=== PATIENT | male | born 1995 | race African-American/Black ===

== ENCOUNTER 2018-09-30 08:47 | Emergency (ER) | payer OTHER ==
[~2018-09-30] VITALS: Ht 177.8 cm; Wt 75.0 kg
[2018-09-30] MEDS ORDERED: KETOROLAC 60 MG/2 ML VIAL (J1885) IM ONE (09:45)
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
[2018-09-30] MEDS ORDERED: NAPR-885 PO (10:06)
[2018-09-30] MEDS ORDERED: ROBA500T PO (10:06)
[2018-09-30 10:12] VITALS: BP 137/76
== END 2018-09-30 10:13 | disposition home or self-care (01) ==
LOC: M ED 08:47
DX: M54.9 Dorsalgia, unspecified (principal); V48.0XXA Car driver injured in noncollision transport accident in nontraffic accident, initial encounter; Y92.89 Other specified places as the place of occurrence of the external cause; Y93.89 Activity, other specified; Y99.9 Unspecified external cause status
CPT/HCPCS: 72072; 72110; 96372; 99283; J1885

== ENCOUNTER 2018-12-25 19:46 | Emergency (ER) | payer OTHER ==
[~2018-12-25] VITALS: Ht 177.8 cm; Wt 84.1 kg
[~2018-12-25 19:46] MED LIST: NAPR-885 PO; ROBA500T PO
[2018-12-25 21:51] LABS: CHLAMYDIA DNA AMPLIFICATION POSITIVE (NEGATIVE); GC DNA AMPLIFICATION NEGATIVE (NEGATIVE)
[2018-12-25] MEDS ORDERED: AZITHROMYCIN 250 MG TAB PO ONE (22:30)
[2018-12-25 22:35] VITALS: BP 131/70
== END 2018-12-25 22:38 | disposition home or self-care (01) ==
LOC: M ED 19:46
DX: A74.9 Chlamydial infection, unspecified (principal)

== ENCOUNTER 2019-01-01 23:26 | Emergency (ER) | payer OTHER ==
[~2019-01-01] VITALS: Ht 177.8 cm; Wt 81.8 kg
[2019-01-01 23:26] VITALS: BP 131/68
[2019-01-02 03:26] LABS: CHLAMYDIA DNA AMPLIFICATION NEGATIVE (NEGATIVE); GC DNA AMPLIFICATION NEGATIVE (NEGATIVE)
== END 2019-01-02 04:51 | disposition home or self-care (01) ==
LOC: M ED 23:26
DX: Z11.3 Encounter for screening for infections with a predominantly sexual mode of transmission (principal)

== ENCOUNTER 2019-03-24 13:46 | Emergency (ER) | payer OTHER ==
[~2019-03-24] VITALS: Ht 177.8 cm; Wt 87.4 kg
[2019-03-24 13:47] VITALS: BP 117/59
== END 2019-03-24 15:20 | disposition left against medical advice (07) ==
LOC: M ED 13:46
DX: Z53.29 Procedure and treatment not carried out because of patient's decision for other reasons (principal)

== ENCOUNTER 2019-12-31 21:57 | Emergency (ER) | payer OTHER ==
[~2019-12-31] VITALS: Ht 177.8 cm; Wt 88.6 kg
[2019-12-31 23:59] LABS: CHLAMYDIA DNA AMPLIFICATION NEGATIVE (NEGATIVE); GC DNA AMPLIFICATION NEGATIVE (NEGATIVE)
[2020-01-01 00:21] VITALS: BP 128/64
== END 2020-01-01 00:22 | disposition home or self-care (01) ==
LOC: M ED 21:57
DX: N48.89 Other specified disorders of penis (principal)

== ENCOUNTER 2020-01-08 21:44 | Emergency (ER) | payer OTHER ==
[~2020-01-08] VITALS: Ht 177.8 cm; Wt 95.6 kg
[2020-01-08] MEDS ORDERED: LIDOCAINE 1% SDV 5ML VIAL DILUENT ONE (22:45)
[2020-01-08] MEDS ORDERED: AZITHROMYCIN 250MG TABLET PO ONE (22:45)
[2020-01-08] MEDS ORDERED: cefTRIAXone SOD 250MG VIAL (J0696 PER 250MG) IM ONE (22:45)
[2020-01-08] MEDS ORDERED: diphenhydrAMINE 50MG/ML VIAL (J1200) IV ONE (23:00)
[2020-01-08] MEDS ORDERED: diphenhydrAMINE 50MG CAP PO ONE (23:00)
[2020-01-08] MEDS ORDERED: methylPREDNISolone 125MG 2ML VIAL IV ONE (23:15)
[2020-01-08 23:50] LABS: CHLAMYDIA DNA AMPLIFICATION NEGATIVE (NEGATIVE); GC DNA AMPLIFICATION NEGATIVE (NEGATIVE)
[2020-01-09] MEDS ORDERED: metroNIDAZOLE (FLAGYL) 500MG TABLET PO ONE (00:15)
[2020-01-09] MEDS ORDERED: FLAG500T PO (00:56)
[2020-01-09 01:03] VITALS: BP 130/68
== END 2020-01-09 01:06 | disposition home or self-care (01) ==
LOC: M ED 21:44
DX: A59.8 Trichomoniasis of other sites (principal); L29.9 Pruritus, unspecified; T50.905A Adverse effect of unspecified drugs, medicaments and biological substances, initial encounter; X58.XXXA Exposure to other specified factors, initial encounter; Y92.89 Other specified places as the place of occurrence of the external cause
CPT/HCPCS: 81001; 87086; 87661; 94760; 96372; 96374; 96375; 99284; J0696; J1200; J2930

== ENCOUNTER 2020-05-23 00:10 | Emergency (ER) | payer OTHER ==
[~2020-05-23] VITALS: Ht 177.8 cm; Wt 95.1 kg
[2020-05-23 00:10] VITALS: BP 131/87
[~2020-05-23 00:10] MED LIST changes: +FLAG500T PO
[2020-05-23 02:21] LABS: CHLAMYDIA DNA AMPLIFICATION NEGATIVE (NEGATIVE); GC DNA AMPLIFICATION NEGATIVE (NEGATIVE)
[2020-05-23] MEDS ORDERED: CIPR-249 PO (02:29)
[2020-05-23] MEDS ORDERED: CIPROFLOXACIN 500MG TABLET PO ONE (02:30)
[2020-05-24 11:32] LABS: HEPATITIS B SURFACE ANTIBODY POSITIVE (POSITIVE); HEPATITIS B SURFACE ANTIGEN NEGATIVE (NEGATIVE); HEPATITIS C VIRUS ABY INDEX < 0.0 INDEX (<0.8); HIV 1&2 SCREEN CENTAUR NEGATIVE (NEGATIVE)
== END 2020-05-23 02:47 | disposition home or self-care (01) ==
LOC: M ED 00:10
DX: N30.01 Acute cystitis with hematuria (principal); R30.0 Dysuria; N48.89 Other specified disorders of penis

== ENCOUNTER 2022-03-31 22:49 | Emergency (ER) | payer OTHER ==
[~2022-03-31] VITALS: Ht 177.8 cm; Wt 99.1 kg
[~2022-03-31 22:49] MED LIST changes: +CIPR-249 PO
[2022-03-31 22:50] VITALS: BP 142/75
[2022-04-01 00:57] LABS: GC DNA AMPLIFICATION NEGATIVE (NEGATIVE)
[2022-04-01] MEDS ORDERED: METR-265 PO (01:14)
[2022-04-01] MEDS ORDERED: metroNIDAZOLE (FLAGYL) 500MG TABLET PO ONE (01:15)
== END 2022-04-01 01:32 | disposition home or self-care (01) ==
LOC: M ED 22:49
DX: N34.2 Other urethritis (principal); Z79.2 Long term (current) use of antibiotics; Z88.1 Allergy status to other antibiotic agents

== ENCOUNTER 2022-09-14 22:47 | Emergency (ER) | payer OTHER ==
[~2022-09-14] VITALS: Ht 177.8 cm; Wt 90.9 kg
[~2022-09-14 22:47] MED LIST changes: +METR-265 PO
[2022-09-14] MEDS ORDERED: IBUP-1022 PO (23:05)
[2022-09-14] MEDS ORDERED: IBUPROFEN 600MG TAB PO ONE (23:05)
[2022-09-14 23:20] LABS: APPEARANCE, URINE HAZY (CLEAR); BACTERIA, URINE AUTO NEGATIVE (NEGATIVE); BILIRUBIN, URINE AUTO NEGATIVE (NEGATIVE); BLOOD, URINE BLOOD NEGATIVE (NEGATIVE); COLOR, URINE YELLOW (YELLOW); GLUCOSE, URINE (UA) AUTO NEGATIVE (NEGATIVE); KETONE, URINE AUTO TRACE mg/dL (NEGATIVE); LEUKOCYTE ESTERASE, URINE AUTO 1+ (NEGATIVE); MUCUS, URINE SMALL (NEGATIVE); NITRITE, URINE AUTO NEGATIVE (NEGATIVE); PROTEIN, URINE AUTO 1+ mg/dL (NEGATIVE); RBC, URINE AUTO 3 /HPF (0-3); SPECIFIC GRAVITY URINE AUTO 1.028 (1.002-1.035); SQUAMOUS EPITHELIAL CELL UR AU 3 /HPF (0-6); UROBILINOGEN, URINE AUTO 0.2 mg/dL (0.0-2.0); WBC, URINE AUTO 25 /HPF (0-3)
[2022-09-15 00:35] LABS: GC DNA AMPLIFICATION NEGATIVE (NEGATIVE)
[2022-09-15 01:29] VITALS: BP 129/67
[2022-09-15] MEDS ORDERED: DOXYCYCLINE HYCLATE 100MG TABLET PO ONE (01:30)
[2022-09-15] MEDS ORDERED: DOXY-443 PO (01:45)
== END 2022-09-15 01:48 | disposition home or self-care (01) ==
LOC: M ED 22:47
DX: Z20.2 Contact with and (suspected) exposure to infections with a predominantly sexual mode of transmission (principal); Z88.1 Allergy status to other antibiotic agents; Z79.2 Long term (current) use of antibiotics

== ENCOUNTER 2023-01-13 11:28 | Emergency (ER) | payer OTHER ==
[~2023-01-13] VITALS: Ht 177.8 cm; Wt 96.9 kg
[~2023-01-13 11:28] MED LIST changes: +DOXY-443 PO; +IBUP-1022 PO
[2023-01-13] MEDS ORDERED: AMOX875T2 PO (13:21)
[2023-01-13 13:31] VITALS: BP 129/71; TEMP 98.3; O2SAT 100
== END 2023-01-13 13:36 | disposition home or self-care (01) ==
LOC: M ED 11:28
DX: L03.012 Cellulitis of left finger (principal); Z79.2 Long term (current) use of antibiotics; Z88.1 Allergy status to other antibiotic agents

== ENCOUNTER 2023-01-16 18:02 | Emergency (ER) | payer OTHER ==
[~2023-01-16] VITALS: Ht 177.8 cm; Wt 96.9 kg
[~2023-01-16 18:02] MED LIST changes: +AMOX875T2 PO
[2023-01-16 18:04] VITALS: TEMP 99.2
[2023-01-16 19:41] LABS: BASO # 0.1 10^3/uL (0.0-0.2); BASO % 0.7 % (0.0-1.0); EOS # 0.1 10^3/uL (0.0-0.5); EOS % 1.8 % (0.0-3.0); LYMPH # 3.3 10^3/uL (1.5-5.0); LYMPH % 45.7 % (24.0-44.0); MEAN CORPUSCULAR HEMOGLOBIN 29.7 pg (27.0-33.0); MEAN CORPUSCULAR HGB CONC 33.3 g/dl (32.0-36.5); MONO # 0.8 10^3/uL (0.0-0.8); MONO % 10.9 % (2.0-8.0); NEUTROPHILS % 40.8 % (36.0-66.0); PLATELET COUNT, AUTOMATED 225 10^3/uL (150-450); RED BLOOD COUNT 4.72 10^6/uL (4.30-6.10); WHITE BLOOD COUNT 7.3 10^3/uL (4.0-10.0)
[2023-01-16 20:05] LABS: BLOOD UREA NITROGEN 19 MG/DL (9-23); CARBON DIOXIDE LEVEL 28 MMOL/L (20-31); CHLORIDE LEVEL 104 MMOL/L (98-107); CREATININE FOR GFR 1.17 MG/DL (0.70-1.30); GLOMERULAR FILTRATION RATE > 60.0 (>60); GLUCOSE, FASTING 87 MG/DL (60-100); SODIUM LEVEL 140 MMOL/L (136-145)
[2023-01-16 20:09] LABS: ERYTHROCYTE SEDIMENTATION RATE 15 mm/hr (0-15)
[2023-01-16 21:54] LABS: C REACTIVE PROTEIN QUANTITATIV < 0.40 MG/DL (<1.0)
[2023-01-16] MEDS ORDERED: AUGMENTIN 875 MG TAB PO ONE (22:35)
[2023-01-16] MEDS ORDERED: AMOX875T2 PO (22:42)
[2023-01-16] MEDS ORDERED: KETOROLAC 60MG 2ML VIAL IM ONE (22:45)
[2023-01-16 22:51] VITALS: BP 122/74; O2SAT 99
== END 2023-01-16 22:51 | disposition home or self-care (01) ==
LOC: M ED 18:02
DX: L03.012 Cellulitis of left finger (principal); Z88.1 Allergy status to other antibiotic agents; Z79.2 Long term (current) use of antibiotics
CPT/HCPCS: 80048; 85025; 85652; 86140; 87040; 87070; 96372; 99283; J1885